=== PATIENT | female | born 1960 | race Caucasian/White ===

== ENCOUNTER 2021-11-14 10:13 | Emergency (ER) | payer OTHER ==
[~2021-11-14] VITALS: Ht 170.2 cm; Wt 106.6 kg
[2021-11-14] MEDS ORDERED: KETOROLAC TROMETH 60MG/2ML VIAL IM ONE (13:00)
[2021-11-14 13:05] VITALS: BP 154/95
[2021-11-14] MEDS ORDERED: CEPH-509 PO (13:33)
[2021-11-14] MEDS ORDERED: IBUP800T27 PO (13:33)
== END 2021-11-14 13:36 | disposition home or self-care (01) ==
LOC: EDBD 10:13 → ER 10:13
DX: S29.011A Strain of muscle and tendon of front wall of thorax, initial encounter (principal); S63.91XA Sprain of unspecified part of right wrist and hand, initial encounter; S00.83XA Contusion of other part of head, initial encounter; E11.9 Type 2 diabetes mellitus without complications; W19.XXXA Unspecified fall, initial encounter; Y93.89 Activity, other specified; Y92.89 Other specified places as the place of occurrence of the external cause; Y99.8 Other external cause status
CPT/HCPCS: 70486; 71101; 73130; 93005; 96372; 99284; J1885